=== PATIENT | male | born 1945 | race Caucasian/White ===

== ENCOUNTER → 2016-11-14 | Outpatient (CLI) | payer OTHER, MEDICARE ==
--- NOTE | 2016-11-14 13:34 | DX ---
Chest, PA and lateral. History: Preoperative evaluation. Comparison: February 2007. Findings: Heart size is within normal limits. Pulmonary vascularity is normal. The lungs are clear. No evidence of pleural effusion or pneumothorax. Mild degenerative change is seen in the thoracic sp ine. Impression: No evidence of acute cardiopulmonary abnormality.
== END ==
LOC: BMCIMAGING 12:36
PROVIDERS: ATTEND Nurse Practitioner Adult Health
DX: Z01.811 Encounter for preprocedural respiratory examination (principal); I10 Essential (primary) hypertension; I47.1 Supraventricular tachycardia; Z01.810 Encounter for preprocedural cardiovascular examination

== ENCOUNTER 2016-12-03 07:59 | Inpatient (IN) | payer OTHER, MEDICARE ==
[~2016-12-03 07:59] MED LIST: ACETAMINOPHEN 325 MG TAB PO ONE; BISACODYL 10 MG SUPP PR PRN; CEFAZOLIN 2 GM/DEXTR 100 ML IV ONE; CHLORHEXIDINE GLUC HIBICLENS 118 ML BTL TP ONE; CYCLOBENZAPRINE 10 MG TAB PO PRN; DIAZEPAM 5 MG TAB PO PRN; DIPHENOXYLATE/ATROPINE LOMOTIL 1 TAB PO PRN; FAMOTIDINE 20 MG TAB PO ONE; LACTULOSE 20 GM/30 ML UDCUP PO PRN; LR 1,000 ML IV SCH; MAGNESIUM HYDROXIDE 30 ML UDCUP PO PRN; METOCLOPRAMIDE 10 MG/2 ML VIAL IVP PRN; ONDANSETRON 4 MG/2 ML VIAL IVP PRN; ONDANSETRON DISINTEGRATING 4 MG TAB PO PRN; PHARMACY PAIN CONSULT 1 EA MISC PRN; POLYETHYLENE GLYCOL 3350 17 GM PKT PO PRN; PROMETHAZINE HCL 25 MG SUPPR PR PRN; PROMETHAZINE HCL 25 MG/ML INJ IVP PRN; ROPI/epiNEPH/KETOROLAC/morphINE JOINT COCKTAIL IU ONE; TEMAZEPAM 15 MG CAP PO PRN; diphenhydrAMINE 25 MG CAP PO PRN; oxyCODONE IR 5 MG TAB PO PRN; traMADol 50 MG TAB PO PRN
[2016-12-03] MEDS ORDERED: THROMBIN (RECOMBINANT) 5,000 UNIT VIAL TP ONE (08:13)
[2016-12-03] MEDS ORDERED: ceFAZolin 1 GM/5 ML SYR ONE (08:14)
[2016-12-03] MEDS ORDERED: CALCIUM CHLORIDE 1 GM/10 ML INJ ONE (08:14)
[2016-12-03] MEDS ORDERED: PROPOFOL/EMULSION 500 MG/50 ML BOTTLE IV ONE (08:39)
[2016-12-03] MEDS ORDERED: fentaNYL 100 MCG/2 ML INJ ONE (08:39)
[2016-12-03] MEDS ORDERED: SOTALOL HCL 120 MG PO SCH (09:00)
[2016-12-03] MEDS ORDERED: NON-FORMULARY NEW DRUG (Valsartan/Hydrochlorothiazide [Valsartan-Hctz 160-12.5 Mg Tab] 1 E PO SCH (09:00)
[2016-12-03] MEDS ORDERED: LIDOCAINE 1% 5 ML SDV ONE (09:13)
[2016-12-03] MEDS ORDERED: FAMOTIDINE 20 MG TAB ONE (09:35)
[2016-12-03] MEDS ORDERED: ACETAMINOPHEN 325 MG TAB ONE (09:36)
[2016-12-03] MEDS ORDERED: CEFAZOLIN 2 GM/DEXTROSE/100 ML BAG IV ONE (09:36)
[2016-12-03] MEDS ORDERED: MIDAZOLAM 2 MG/2 ML VIAL ONE ×2 (09:51→10:03)
[2016-12-03] MEDS ORDERED: LR 1,000 ML IV ONE (10:10)
[2016-12-03] MEDS ORDERED: PHENYLEPHRINE HCL 100 MCG/ML SYR ONE (11:09)
[2016-12-03] MEDS ORDERED: SUCCINYLCHOLINE CHLORIDE*ANESTHESIA ONLY*200 MG/10 ML SYR IVP ONE (11:09)
[2016-12-03] MEDS ORDERED: DEXAMETHASONE 4 MG/ML VIAL ONE (11:09)
[2016-12-03] MEDS ORDERED: ONDANSETRON 4 MG/2 ML VIAL ONE (11:09)
[2016-12-03] MEDS ORDERED: ROCURONIUM 50 MG/5 ML VIAL ONE (11:22)
[2016-12-03] MEDS ORDERED: ROPIVACAINE HCL 150 MG/30 ML INJ ONE (11:36)
[2016-12-03] MEDS ORDERED: ceFAZolin 2 GM/DEXTROSE 100 ML IV SCH (14:00)
[2016-12-03] MEDS: ACETAMINOPHEN 325 MG TAB PO SCH ×2 (14:14→18:24)
[2016-12-03] MEDS: amLODIPine BESYLATE 5 MG TAB PO SCH (14:16)
[2016-12-03] MEDS: ROSUVASTATIN CALCIUM 40 MG TAB PO SCH (14:18)
[2016-12-03] MEDS: SENNOSIDES/DOCUSATE SODIUM TAB PO SCH ×2 (14:25→20:55)
[2016-12-03] MEDS: ceFAZolin 2 GM in D5W 100 ML IV SCH ×2 (14:26→23:38)
[2016-12-03] MEDS: HYDROCHLOROTHIAZIDE 12.5 MG CAP PO SCH (15:16)
[2016-12-03] MEDS: VALSARTAN 160 MG TAB PO SCH (15:17)
[2016-12-03] MEDS ORDERED: ceFAZolin 2 GM in D5W 100 ML IV SCH (17:00)
[2016-12-03 19:56] VITALS: RESP 16
[2016-12-03] MEDS: FAMOTIDINE 20 MG TAB PO SCH (20:54)
[2016-12-03] MEDS: SOTALOL HCL 80 MG TAB PO SCH (20:54)
[2016-12-03] MEDS: ASPIRIN 325 MG TAB PO SCH (20:54)
[2016-12-04] MEDS: ACETAMINOPHEN 325 MG TAB PO SCH ×2 (02:58→06:13)
[2016-12-04 03:15] VITALS: TEMP 98.1
[2016-12-04 06:25] LABS: HEMATOCRIT 37.9 % (40.0-51.0); HEMOGLOBIN 13.2 g/dL (13.7-17.5)
--- NOTE | 2016-12-04 07:23 | PDIAF ---
- Diagnosis Diagnosis: left knee djd Code Status: Full Code - Medication Management Discharge Medications: Medications to Continue on Transfer Aspirin [Aspirin 81mg (*)] 81 mg PO DAILY 05/15/13 [Last Taken 12/02/16 06:30] Rosuvastatin Calcium [Crestor 40mg (*)] 40 mg PO DAILY 05/15/13 [Last Taken 06:30] Sotalol HCl [Betapace] 120 mg PO BID 10/30/16 [Last Taken 12/03/16 06:30] Valsartan/Hydrochlorothiazide [Valsartan-Hctz 160-12.5 mg Tab] 1 each PO DAILY 10/30/16 [Last Taken 12/02/16 20:00] amLODIPine BESYLATE [Norvasc 5 mg (*)] 5 mg PO DAILY 10/30/16 [Last Taken 06:30] Discharge Medications: Refer to the Discharge Home Medication list for PRN reason. - Orders Services needed: Physical Therapy Diet Recommendation: no restrictions on diet Diet Texture: Regular Texture Diet Activity/Weight Bearing Restrictions: wbat. rom as tolerated. DAILY DRESSING CHANGES. no soaking or immersion. may shower without bandage. f/u at two weeks. seek attn for increasing pain, redness, drainage, or other focal complaint - Follow Up Care Current Providers and Referrals: Pratik Moseley MD [Primary Care Provider] -
[2016-12-04 07:56] VITALS: BP 115/73; PULSE 65; O2SAT 97
--- NOTE | 2016-12-04 08:02 | GDS ---
PREOPERATIVE DIAGNOSIS: Left knee degenerative joint disease. DISCHARGE DIAGNOSIS: Left knee degenerative joint disease. PROCEDURE: Left total knee arthroplasty. OPERATIVE INDICATIONS: The patient is a 71-year-old gentleman, with end-stage arthritis to his left knee. Clinical and radiographic features are consistent with this. He has failed all attempts at conservative management. I have therefore recommended total knee replacement. HOSPITAL COURSE: Patient was admitted after uncomplicated total knee arthroplasty. He tolerated th e procedure well. Postoperatively he had an uneventful course. At time of discharge, he is tolerat ing oral diet. His pain is well controlled on oral medicines. He is voiding and stooling without d ifficulty. Dressing is clean, dry, and intact. Negative Homans. X-rays are stable with no fractur e or lucency. DISCHARGE ACTIVITY: Weightbearing as tolerated. Range of motion as tolerated. Daily dressing lopez ges. No soaking or immersion. May shower without the bandage and/or dressing. DISCHARGE MEDICATIONS: Oxycodone 5 mg 1-2 every 3 hours p.r.n. pain, Valium 5 mg every 6 hours p.r. n. spasm, aspirin 325 mg p.o. daily. HERO donohue x2 weeks. Follow up in 2 weeks. Seek attention for increasing redness, swelling, drainage, discharge, or othe r focal complaints. /[id number]/MODL
[2016-12-04] MEDS: VALSARTAN 160 MG TAB PO SCH (08:41)
[2016-12-04] MEDS: ROSUVASTATIN CALCIUM 40 MG TAB PO SCH (08:41)
[2016-12-04] MEDS: SENNOSIDES/DOCUSATE SODIUM TAB PO SCH (08:41)
[2016-12-04] MEDS: amLODIPine BESYLATE 5 MG TAB PO SCH (08:41)
[2016-12-04] MEDS: HYDROCHLOROTHIAZIDE 12.5 MG CAP PO SCH (08:41)
[2016-12-04] MEDS: SOTALOL HCL 80 MG TAB PO SCH (08:41)
[2016-12-04] MEDS: ASPIRIN 325 MG TAB PO SCH (08:41)
[2016-12-04] MEDS: FAMOTIDINE 20 MG TAB PO SCH (08:42)
== END 2016-12-04 10:55 | disposition home health service (06) | DRG 470 ==
LOC: F3N 07:59
PROVIDERS: ADMIT Orthopaedic Surgery; ATTEND Orthopaedic Surgery
PROC: 0SRD0J9 Replacement of Left Knee Joint with Synthetic Substitute, Cemented, Open Approach (ICD-10-PCS; principal; 2016-12-03 10:02)
DX: M17.12 Unilateral primary osteoarthritis, left knee (principal); I10 Essential (primary) hypertension; I25.10 Atherosclerotic heart disease of native coronary artery without angina pectoris; E78.5 Hyperlipidemia, unspecified; Z95.5 Presence of coronary angioplasty implant and graft
CPT/HCPCS: 97110-GP; 97116-GP; 97161-GP; 97165-GO; C1713; G8978-GP-CI; G8979-GP-CI; G8987-GO-CI; G8988-GO-CI; G8989-GO-CI; J0171; J0330; J0690; J1100; J1885; J2250; J2370; J2405; J2704; J2795; J3010

== ENCOUNTER → 2017-01-11 | Outpatient (CLI) | payer OTHER, MEDICARE | LOC: BMCIMAGING 09:42 | PROVIDERS: ATTEND Physician Assistant | DX: Z09 Encounter for follow-up examination after completed treatment for conditions other than malignant neoplasm (principal); Z96.652 Presence of left artificial knee joint ==

== ENCOUNTER → 2018-06-26 | Outpatient (CLI) | payer OTHER, MEDICARE | LOC: BHFA 11:00 | PROVIDERS: ATTEND Internal Medicine Cardiovascular Disease | DX: I47.1 Supraventricular tachycardia (principal) ==

== ENCOUNTER 2019-01-26 13:46 | Day surgery (SDC) | payer OTHER, MEDICARE ==
[2019-01-26] MEDS ORDERED: LR 1,000 ML IV ONE (14:03)
[2019-01-26] MEDS ORDERED: ceFAZolin 1 GM/5 ML SYR ONE (14:32)
[2019-01-26] MEDS ORDERED: LIDOCAINE 2% 5 ML SDV ONE ×2 (14:32→15:37)
[2019-01-26] MEDS ORDERED: BUPIVACAINE 0.5% 30 ML SDV ONE (14:32)
[2019-01-26] MEDS ORDERED: MIDAZOLAM 2 MG/2 ML VIAL ONE (15:01)
[2019-01-26] MEDS ORDERED: ceFAZolin 2 GM/DEXTROSE 100 ML IV ONE (15:02)
--- NOTE | 2019-01-26 15:04 | PDHPUP ---
History & Physical Update H&P update statement: This history and physical update is based on an assessment of the patient which was completed after admission or registration (within 24 hours), but prior to the surgery/procedure. H&P update: H&P reviewed & patient examined, no change in patient's condition since H&P completed
[2019-01-26] MEDS ORDERED: fentaNYL 100 MCG/2 ML INJ ONE ×2 (15:17)
[2019-01-26] MEDS ORDERED: PROPOFOL 200 MG/20 ML VIAL ONE ×2 (15:18→15:24)
[2019-01-26] MEDS ORDERED: ROCURONIUM 100 MG/10 ML VIAL ONE (15:36)
[2019-01-26] MEDS ORDERED: DEXAMETHASONE 4 MG/ML VIAL ONE (15:36)
[2019-01-26] MEDS ORDERED: ONDANSETRON 4 MG/2 ML VIAL ONE (15:37)
[2019-01-26] MEDS ORDERED: ROPIVACAINE HCL 150 MG/30 ML INJ ONE (15:37)
[2019-01-26] MEDS ORDERED: ONDANSETRON 4 MG/2 ML VIAL IVP PRN (15:47)
[2019-01-26] MEDS ORDERED: LABETALOL HCL 5 MG/ML 20 ML MDV IVP PRN (15:47)
[2019-01-26] MEDS ORDERED: fentaNYL 100 MCG/2 ML INJ IVP PRN (15:47)
[2019-01-26] MEDS ORDERED: HYDROmorphONE/DILAUDID 1 MG/ML INJ IVP PRN (15:47)
[2019-01-26] MEDS ORDERED: ACETAMINOPHEN 500 MG TAB PO PRN (15:47)
[2019-01-26] MEDS ORDERED: oxyCODONE IR 5 MG TAB PO PRN (15:47)
[2019-01-26] MEDS ORDERED: PROMETHAZINE HCL 25 MG/ML INJ IVP PRN (15:47)
[2019-01-26] MEDS ORDERED: ALBUTEROL 3 ML DEYVIAL IH PRN (15:47)
[2019-01-26] MEDS ORDERED: NALOXONE HCL 0.4 MG/ML INJ IVP PRN (15:47)
[2019-01-26] MEDS ORDERED: HYDROCODONE/APAP 5/325 TAB PO PRN (15:47)
--- NOTE | 2019-01-26 15:47 | PDANEPAE ---
ANE History of Present Illness left achilles rupture ANE Past Medical History - Cardiovascular History Hx Hypertension: Yes Hx Arrhythmias: Yes Hx Chest Pain: No Hx Coronary Artery / Peripheral Vascular Disease: Yes Hx CHF / Valvular Disease: No Hx Palpitations: No Cardiovascular History Comment: STENTS X5 LAST 2013. PREV ABLATION FOR SVT UNSUCCESSFUL - Pulmonary History Hx COPD: No Hx Asthma/Reactive Airway Disease: No Hx Recent Upper Respiratory Infection: No Hx Oxygen in Use at Home: No Hx Sleep Apnea: No Sleep Apnea Screening Result - Last Documented: Positive - Neurologic History Hx Cerebrovascular Accident: No Hx Seizures: No Hx Dementia: No - Endocrine History Hx Diabetes: No Obesity: no - Renal History Hx Renal Disorders: No - Liver History Hx Hepatic Disorders: No - Neurological & Psychiatric Hx Hx Neurological and Psychiatric Disorders: No - Cancer History Hx Cancer: Yes Cancer History Comment: LT SHLDR REMVL MELANOMA - Congenital Disorder History Hx Congenital Disorders: No - GI History Hx Gastrointestinal Disorders: No - Other Health History Other Health History: INJURED LT ACHILLES 3 WEEKS AGO - Chronic Pain History Chronic Pain: No - Surgical History Prior Surgeries: LT TOTAL KNEE. MICAELA CATARACT. DETACHED RETINA. 4 coronary stents,re-stenosis 2013 ANE Review of Systems Review of systems is: negative Review of Systems: - Exercise capacity METS (RN): 5 METS ANE Patient History - Allergies Allergies/Adverse Reactions: No Known Allergies Allergy (Verified 11/05/16 09:02) - Home Medications Home medications: home medication list seen and reviewed Home Medications: Rosuvastatin Calcium [Crestor 40mg (*)] 40 mg PO DAILY 05/15/13 [Last Taken 06:30] Sotalol HCl [Betapace] 120 mg PO BID 10/30/16 [Last Taken 12/03/16 06:30] Valsartan/Hydrochlorothiazide [Valsartan-Hctz 160-12.5 mg Tab] 1 each PO DAILY 10/30/16 [Last Taken 12/02/16 20:00] amLODIPine BESYLATE [Norvasc 5 mg (*)] 5 mg PO DAILY 10/30/16 [Last Taken 06:30] - NPO status NPO Status: no food or drink >8 hours NPO Since - Liquids (Date): 01/26/19 NPO Since - Liquids (Time): 10:00 NPO Since - Solids (Date): 01/26/19 NPO Since - Solids (Time): 03:00 - Anes Hx Anes Hx: no prior problems - Smoking Hx Smoking Status: Never smoked ANE Labs/Vital Signs - Vital Signs Blood Pressure: 129/76 Heart Rate: 54 Respiratory Rate: 25 O2 Sat (%): 93 Height: 187.96 cm Weight: 113.398 kg ANE Physical Exam - Airway Neck exam: FROM Mallampati Score: Class 2 Mouth exam: normal dental/mouth exam - Pulmonary Pulmonary: no respiratory distress - Cardiovascular Cardiovascular: regular rate and rhythym - ASA Status ASA Status: III ANE Anesthesia Plan Anesthesia Plan: general endotracheal anesthesia Regional Anesthesia: single shot NB, adductor canal FNB, popliteal SNB Urgent/Emergent Case: Gisele benjamin completed preop but documented later for safe timely pt care
--- NOTE | 2019-01-26 15:47 | POSTANESTH ---
Post Anesthetic Evaluation Cardiovascular Status: Normal, Stable Respiratory Status: Normal, Stable Level of Consciousness/Mental Status: Can Participate in Eval, Mildly Sleepy, Arousable Pain Control: Adequate, Prn Tx Ordered Nausea/Vomiting Control: Adequate, Prn Tx Ordered Complications Possibly Related to Anesthesia: None Noted
[2019-01-26] MEDS ORDERED: ePHEDrine SULFATE 25 MG/5 ML SYR ONE (16:09)
[2019-01-26] MEDS ORDERED: KETOROLAC 30 MG/1 ML SDV ONE (16:19)
[2019-01-26] MEDS ORDERED: SUGAMMADEX SODIUM 200 MG/2 ML VIAL IVP ONE (16:19)
[2019-01-26] MEDS ORDERED: OXYCODONE/APAP 5/325 TAB PO PRN (16:51)
--- NOTE | 2019-01-26 16:55 | POSTOPPROG ---
Post Op Note Date of Operation: 01/26/19 Surgeon: Helga Clark Anesthesiologist: Dr. Amador Anesthesia: GET(General Endotracheal), Other (Specify) (Preop Popliteal Block by anesthesia plus postop regional block of 20ml 0.5% Marcaine plain.) Pre-op Diagnosis: Left Achilles tendon rupture Post-op Diagnosis: Left Achilles tendon rupture Indication: Left Achilles tendon rupture Procedure: Left Achilles tendon repair Inf/Abcess present in the surg proc area at time of surgery?: No Depth: Deep Incisional (Fascial) EBL: Pneumatic ankle tourniquet @300 mmHg 62 minutes Clean Closure Performed: Yes
[2019-01-26 18:21] VITALS: BP 127/77
--- NOTE | 2019-01-26 20:45 | GOP ---
[f rep st] OPERATIVE REPORT DATE OF OPERATION: 01/26/2019 SURGEON: Helga Clark DPM ANESTHESIA: General endotracheal anesthesia and popliteal block. ANESTHESIOLOGIST: Dr. Sanders PREOPERATIVE DIAGNOSIS: Left Achilles tendon rupture. POSTOPERATIVE DIAGNOSIS: Left Achilles tendon rupture. PROCEDURE PERFORMED: Left Achilles tendon repair. FINDINGS: ESTIMATED BLOOD LOSS: Minimal. DESCRIPTION OF PROCEDURE: A popliteal block was performed by Dr. Sanders in the preop waiting area. The patient was then brought into the operating room where general anesthesia was performed. A thig h tourniquet was placed about his left thigh. The patient was then placed onto the operating table i n a prone position. The foot and leg were then scrubbed, prepped, and draped in the usual aseptic ma nner. The left leg was exsanguinated and tourniquet inflated to 300 mmHg. Attention was then direct ed to the palpable defect of the Achilles tendon rupture where an incision was made from proximal to distal over the Achilles tendon rupture. The incision was deepened through subcutaneous tissue with care taken to identify and retract all vital neurovascular structures. All bleeders were cauterized as necessary. The paratenon was incised and hematoma debrided from the rupture site. The wound was irrigated with copious sterile saline Ancef irrigation. At this point, the Arthrex pars jig was then inserted and compressed on the Achilles tendon. Following the directions, the suture was placed thr ough the needles, through the skin, into the jig and through the Achilles tendon. Once all the sutur e was placed, the jig was removed and the suture left intact in the Achilles tendon. The suture was knotted as recommended. The suture loop got caught and the suture partially pulled through, but was knotted laterally. It was decided to keep this suture intact but use additional suture to lock sligh tly distal on the Achilles tendon. Once all of the suture was placed and found to be adequately secu red in the Achilles tendon, two stab incisions were then made at the back of the calcaneus. The dril l was used and tapped. The suture passer was then placed through the calcaneal incision sites throug h the distal Achilles tendon to the rupture site. The suture was then pulled through distally and th en anchored both medially and laterally with the ankle held in a plantar flexed position. The Achill es tendon itself was repaired with 2-0 Vicryl at the rupture site. The wound was irrigated and a 2 x 3 amnion applied over the rupture site. The paratenon was repaired with 3-0 Vicryl. The subcuticul ar layer was repaired with 4-0 Monocryl and the skin with 4-0 Prolene in horizontal suture technique. The incision was dressed with Xeroform, 4 x 4 gauze, Wendy, cast padding, posterior splint, and Dada wrap. The tourniquet was deflated at 62 minutes. A prompt hyperemic response was noted to all digi ts of the left foot. The patient was then transferred to the recovery room with vital signs stable and vascular status int act. Following a period of postoperative monitoring, the patient will be discharged home. Advised t o ice and elevate his foot. He is advised to keep the dressing clean, dry, and intact. He will be n onweightbearing on his foot for the next 4 weeks. MATERIALS: Arthrex pars with mid-substance SpeedBridge. INJECTABLES: Postop injection of 20 cc of 0.5% Marcaine plain. HEMOSTASIS: Pneumatic ankle tourniquet at 300 mmHg for 62 minutes. /[id number]/MODL
== END 2019-01-26 18:25 | disposition home or self-care (01) ==
LOC: FSGY 13:46
PROVIDERS: ATTEND Podiatrist Foot & Ankle Surgery
PROC: 0LQP0ZZ Repair Left Lower Leg Tendon, Open Approach (ICD-10-PCS; principal; 2019-01-26 15:15)
DX: S86.012A Strain of left Achilles tendon, initial encounter (principal); X50.9XXA Other and unspecified overexertion or strenuous movements or postures, initial encounter; Y93.01 Activity, walking, marching and hiking; Z95.5 Presence of coronary angioplasty implant and graft; Z96.652 Presence of left artificial knee joint; Z85.820 Personal history of malignant melanoma of skin
CPT/HCPCS: C1713; C9399; J0690; J1100; J1885; J2250; J2405; J2704; J2795; J3010